=== PATIENT | female | born 1955 | race Caucasian/White ===

== ENCOUNTER 2020-12-31 07:38 | Day surgery (SDC) | payer BC, SELFPAY ==
[2020-12-24 15:19] VITALS: BMI 36.7
[2020-12-31 08:12] VITALS: BP 153/80; PULSE 73; RESP 18; TEMP 36.5; O2SAT 99
--- NOTE | 2020-12-31 08:20 | HO.ANESPROP2 ---
HPI - Anesthesia Eval Consult details Narrative: 65 yo female patient for colonoscopy [facility] Past Medical History Medical History HTN (hypertension) Family History Family history of problems with anesthesia: No Surgical History Surgical History H/O colonoscopy Hx of knee surgery Hx of laminectomy History of Problems with Anesthesia: No Social History Social History Patient Tobacco Use Status: Never used Tobacco Use of substances other than those prescribed or required for medical reasons: No Advance Directives Information Provided: No Meds Allergies Allergy/AdvReac Type Severity Reaction Status Date / Time No Known Allergies Allergy Verified 12/31/20 07:51 Home Medications Medication Instructions Recorded Confirmed Last Taken Type multivitamin 1 tab PO DAILY 12/24/20 12/24/20 Unknown History amlodipine 5 mg-benazepril 20 mg 1 cap PO DAILY 12/31/20 12/31/20 12/31/20 06:45 History capsule Exam Exam Date and Time: December 31, 2020 0820 Height,Weight and Vital Signs: Height 5 ft 5.5 in Weight 101.605 kg Last Vital Signs Temp 97.7 F 12/31/20 08:12 Pulse 73 12/31/20 08:12 Resp 18 12/31/20 08:12 BP 153/80 H 12/31/20 08:12 Pulse Ox 99 12/31/20 08:12 Airway Mallampati Class: II TM Dist: >3cm Neck ROM: Limited (Herniated cervical discs) Heart: RRR Lungs: CTAB. Diminished Assessment and Plan Assessment Anesthesia Assessment: Anesthesia Plan Discussed and Chart Reviewed Final Anesthetic Review Family History of Problems with Anesthesia: No History of Problems with Anesthesia: No NPO: Yes ASA Class: II Final Preanesthetic Review: No Changes in Pt Med Stat, Meds/Allgs Chart Reviewed, Consent Obtained/Reviewed and Anes Risks/Benef Reviewed Patient Risk: Low Procedure Risk: Low Assessment/Block/Sedation in SS: Assess/Block/Sedation-SS Anesthetic Plan Anesthetic Plan: MAC: Disposition: Standard PACU
[2020-12-31] MEDS: Lactated Ringers 1,000 ML 100 ML IVCONT (08:27)
--- NOTE | 2020-12-31 08:29 | MHC.SHP ---
Pre-Procedural Eval Section A Date of Service: 12/31/20 The patient is an INPATIENT: No Changes since office visit: No Cold of Flu in the past 2 weeks, No New Medical Problems, No Changes in Medication and No Patient answered all questions The History & Physical has been completed within 30 days and I have reviewed it.: Yes Section B Chief Complaint: screening Allergies: Allergies Allergy/AdvReac Type Severity Reaction Status Date / Time No Known Allergies Allergy Verified 12/31/20 07:51 Plan I have reviewed the history and physical and performed a pertinent physical examination on my patient. No changes have occurred unless specified.
[2020-12-31 09:11] VITALS: BP 108/52; PULSE 71; RESP 16; TEMP 36.3; O2SAT 99
--- NOTE | 2020-12-31 09:12 | P.BOP_ITS ---
Brief Operative Note Date of Service: 12/31/20 Pre-op diagnosis: screening Post-op diagnosis: same (colitis) Procedure: colonoscopy Surgeon: Wyatt Cruz Anesthesia: MAC Was an Validation Software Facilitator used for this Procedure?: No Estimated blood loss (mL): 5 Pathology: other (biopsies) Condition: stable Disposition: PACU
[2020-12-31 09:27] VITALS: BP 128/76; PULSE 62; RESP 16; TEMP 36.3; O2SAT 99
--- NOTE | 2020-12-31 09:27 | OP_ITS ---
SURGEON: Wyatt Cruz MD INDICATIONS: Colon cancer screening. PREOPERATIVE DIAGNOSIS: POSTOPERATIVE DIAGNOSIS: PROCEDURE PERFORMED: Colonoscopy to the terminal ileum with biopsy. ESTIMATED BLOOD LOSS: COMPLICATIONS: ANESTHESIA: ASSISTANTS: SPECIMENS: MEDICATIONS: Monitored anesthesia care. DESCRIPTION OF PROCEDURE: History and physical performed. The risks and benefits of the procedure were explained to the patient. Informed consent was obtained. The patient was placed in the left lateral decubitus position. A digital rectal exam was performed and was found to be normal. The Olympus pediatric video colonoscope was introduced into the rectum and advanced to the cecum without difficulty. The cecum was identified by transillumination, palpation, and identification of ileocecal valve. Examination was performed and the scope was removed. She tolerated the procedure well and was taken to recovery area in stable condition. FINDINGS: The terminal ileum was examined and appeared normal. Biopsies were obtained from the terminal ileum. There was punctate areas of ulceration suggestive of resolving colitis in the cecum and in the rectosigmoid at about 0 to 40 cm. Biopsies were obtained from the mucosa. Retroflexed examination was normal. There was moderate diverticulosis of the sigmoid. IMPRESSION: Colitis. RECOMMENDATION: Follow up the biopsy results. MD ALTAGRACIA Haynes/SAYDA / [id number]
== END 2020-12-31 09:45 | disposition home or self-care (01) ==
PROVIDERS: PCP Internal Medicine; Visit Provider Internal Medicine Gastroenterology
PROC: 0DJD8ZZ Inspection of Lower Intestinal Tract, Via Natural or Artificial Opening Endoscopic (ICD-10-PCS; CPT 45378; principal; 2020-12-31 08:40)
DX: Z12.11 Encounter for screening for malignant neoplasm of colon (principal); K52.9 Noninfective gastroenteritis and colitis, unspecified; K62.89 Other specified diseases of anus and rectum; K57.30 Diverticulosis of large intestine without perforation or abscess without bleeding; I10 Essential (primary) hypertension
CPT/HCPCS: 45380; 88305

== ENCOUNTER 2021-04-15 10:07 | Outpatient (REF) | payer BC, SELFPAY ==
[2021-04-15 11:25] LABS: MANUAL DIFF FLAG NO
[2021-04-15 11:37] LABS: Basophils Absolute Auto 0.1 X10*3/uL (0.0-0.2); Basophils Percent Auto 0.7 % (0-2); Eosinophils Absolute Auto 0.1 X10*3/uL (0.0-0.4); Eosinophils Percent Auto 0.8 % (0-4); Hematocrit 42.5 % (37.0-47.0); Hemoglobin 14.3 g/dl (12.0-16.0); Imm Gran Abs Auto 0.03 X10*3/uL (0.00-0.03); Imm Gran Pct Auto 0.3 % (0.0-0.4); Lymphocytes Absolute Auto 2.2 X10*3/uL (1.2-4.9); Lymphocytes Percent Auto 24.5 % (20-40); Mean Corpuscular HGB Conc 33.6 g/dl (31.0-35.0); Mean Corpuscular Hemoglobin 31.4 pg (27.0-33.0); Mean Corpuscular Volume 93.2 fL (80.0-98.0); Mean Platelet Volume 11.8 fL (9.4-12.3); Monocytes Absolute Auto 0.8 X10*3/uL (0.1-1.2); Monocytes Percent Auto 8.8 % (2-11); Neutrophils Absolute Auto 5.8 x10*3/uL (2.0-8.3); Neutrophils Percent Auto 64.9 % (45-73); Platelet Count 301 X10*3/uL (160-400); Red Blood Count 4.56 X10*6/uL (4.20-5.50); Red Cell Distribution Width 13.2 % (11.0-16.0); White Blood Count 8.9 X10*3/uL (4.8-10.8)
[2021-04-15 11:59] LABS: Alanine Aminotransferase 19 U/L (0-31); Albumin Level 4.6 g/dL (3.5-5.0); Alkaline Phosphatase 69 U/L (39-117); Aspartate Amino Transferase 22 U/L (5-31); Bilirubin Direct 0.2 mg/dL (0.0-0.5); Bilirubin Total 0.5 mg/dL (0.0-1.0); Blood Urea Nitrogen 14 mg/dL (9-16); Estimated Glomerular Filt Rate > 60; Lipase 19 U/L (8-78); Total Protein 7.8 g/dL (6.5-8.0)
== END 2021-04-15 10:08 | disposition home or self-care (01) ==
LOC: HO.HMGCLDS 10:07
PROVIDERS: PCP Internal Medicine; Visit Provider Internal Medicine Gastroenterology
DX: K52.9 Noninfective gastroenteritis and colitis, unspecified (principal)
CPT/HCPCS: 36415; 80076; 82565; 83690; 84520; 85025

== ENCOUNTER 2021-04-23 11:03 | Outpatient (REF) | payer BC, SELFPAY ==
[2021-04-23 15:16] LABS: Leukocytes Stool Qualitative NEGATIVE (NEGATIVE)
== END 2021-04-23 11:04 | disposition home or self-care (01) ==
LOC: HO.HMGCLNP 11:03
PROVIDERS: Visit Provider Internal Medicine Gastroenterology
DX: K52.9 Noninfective gastroenteritis and colitis, unspecified (principal)
CPT/HCPCS: 87045; 87046; 87177; 87209; 89055

== ENCOUNTER 2021-05-08 09:12 | Outpatient (REF) | payer BC, SELFPAY | END 2021-05-08 09:13 | disposition home or self-care (01) | LOC: HO.HMGCLNP 09:12 | PROVIDERS: Visit Provider Internal Medicine Gastroenterology | DX: R19.7 Diarrhea, unspecified (principal) | CPT/HCPCS: 87177; 87209 ==

== ENCOUNTER 2021-06-02 10:06 | Outpatient (REF) | payer BC, SELFPAY | END 2021-06-02 10:07 | disposition home or self-care (01) | LOC: HO.HMGCLDS 10:06 | PROVIDERS: Visit Provider Internal Medicine Gastroenterology | DX: R19.7 Diarrhea, unspecified (principal) | CPT/HCPCS: 36415; 87177; 87209; 87329 ==

== ENCOUNTER 2021-06-04 09:41 | Outpatient (REF) | payer BC, SELFPAY | END 2021-06-04 09:42 | disposition home or self-care (01) | LOC: HO.HMGCLNP 09:41 | PROVIDERS: Visit Provider Internal Medicine Gastroenterology | DX: R19.7 Diarrhea, unspecified (principal) | CPT/HCPCS: 87177; 87209 ==

== ENCOUNTER 2022-02-20 09:45 | Outpatient (REF) | payer BC, SELFPAY ==
[2022-02-20 13:13] LABS: Leukocytes Stool Qualitative NEGATIVE (NEGATIVE)
[2022-02-20 14:16] LABS: Adenovirus F 40/41 Not Detected (Not Detect.); Astrovirus Not Detected (Not Detect.); Campylobacter Not Detected (Not Detect.); Cryptosporidium Not Detected (Not Detect.); Cyclospora cayetanensis Not Detected (Not Detect.); E. coli EAEC Not Detected (Not Detect.); E. coli EPEC Not Detected (Not Detect.); E. coli ETEC Not Detected (Not Detect.); E. coli STEC Not Detected (Not Detect.); Entamoeba histolytica Not Detected (Not Detect.); Giardia lamblia Not Detected (Not Detect.); Norovirus GI/GII Not Detected (Not Detect.); Plesiomonas shigelloides Not Detected (Not Detect.); Rotavirus A Not Detected (Not Detect.); Salmonella Not Detected (Not Detect.); Sapovirus Not Detected (Not Detect.); Shigella sp./EIEC Not Detected (Not Detect.); Vibrio Not Detected (Not Detect.); Vibrio Cholerae Not Detected (Not Detect.); Yersinia enterocolitica Not Detected (Not Detect.)
[2022-03-01 19:21] LABS: Calprotectin, Fecal 61 mcg/g
== END 2022-02-20 09:46 | disposition home or self-care (01) ==
LOC: HO.HMGCLDS 09:45
PROVIDERS: PCP Internal Medicine; Visit Provider Internal Medicine Gastroenterology
DX: R19.7 Diarrhea, unspecified (principal)
CPT/HCPCS: 83993; 87177; 87209; 87507; 89055

== ENCOUNTER 2022-08-21 09:18 | Outpatient (REF) | payer MEDICARE, SELFPAY ==
[2022-08-21 11:39] LABS: MANUAL DIFF FLAG NO
[2022-08-21 11:56] LABS: Basophils Absolute Auto 0.1 X10*3/uL (0.0-0.2); Basophils Percent Auto 0.8 % (0-2); Eosinophils Absolute Auto 0.1 X10*3/uL (0.0-0.4); Eosinophils Percent Auto 0.5 % (0-4); Hematocrit 42.1 % (37.0-47.0); Imm Gran Abs Auto 0.06 X10*3/uL (0.00-0.03); Imm Gran Pct Auto 0.5 % (0.0-0.4); Lymphocytes Absolute Auto 1.6 X10*3/uL (1.2-4.9); Lymphocytes Percent Auto 12.5 % (20-40); Mean Corpuscular HGB Conc 33.3 g/dl (31.0-35.0); Mean Corpuscular Hemoglobin 31.1 pg (27.0-33.0); Mean Corpuscular Volume 93.6 fL (80.0-98.0); Mean Platelet Volume 12.2 fL (9.4-12.3); Monocytes Percent Auto 7.2 % (2-11); Neutrophils Absolute Auto 10.3 x10*3/uL (2.0-8.3); Neutrophils Percent Auto 78.5 % (45-73); Platelet Count 293 X10*3/uL (160-400); Red Cell Distribution Width 13.3 % (11.0-16.0); White Blood Count 13.2 X10*3/uL (4.8-10.8)
[2022-08-21 12:48] LABS: TSH reflex Free T4 1.17 uIU/mL (0.32-4.0)
[2022-08-21 13:07] LABS: Leukocytes Stool Qualitative NEGATIVE (NEGATIVE)
[2022-08-21 13:16] LABS: CDiff Gene PCR POSITIVE (Negative)
[2022-08-21 14:10] LABS: CDIFF Internal ctrl Dots and bkg OK (V)
[2022-08-21 14:23] LABS: CDiff Toxin Positive (Negative)
[2022-08-21 14:43] LABS: Campylobacter Not Detected (Not Detect.); E. coli EAEC Not Detected (Not Detect.); E. coli EPEC Not Detected (Not Detect.); E. coli ETEC Not Detected (Not Detect.); E. coli STEC Not Detected (Not Detect.); Plesiomonas shigelloides Not Detected (Not Detect.); Salmonella Not Detected (Not Detect.); Vibrio Not Detected (Not Detect.); Vibrio Cholerae Not Detected (Not Detect.); Yersinia enterocolitica Not Detected (Not Detect.)
[2022-08-21 14:44] LABS: Adenovirus F 40/41 Not Detected (Not Detect.); Astrovirus Not Detected (Not Detect.); Cryptosporidium Not Detected (Not Detect.); Cyclospora cayetanensis Not Detected (Not Detect.); Entamoeba histolytica Not Detected (Not Detect.); Giardia lamblia Not Detected (Not Detect.); Norovirus GI/GII Not Detected (Not Detect.); Rotavirus A Not Detected (Not Detect.); Sapovirus Not Detected (Not Detect.); Shigella sp./EIEC Not Detected (Not Detect.)
== END 2022-08-21 09:19 | disposition home or self-care (01) ==
LOC: HO.HMGCLDS 09:18
PROVIDERS: PCP Internal Medicine; Visit Provider Internal Medicine Gastroenterology
DX: K52.9 Noninfective gastroenteritis and colitis, unspecified (principal); R19.7 Diarrhea, unspecified
CPT/HCPCS: 36415; 84443; 85025; 87177; 87209; 87324; 87493; 87507; 89055

== ENCOUNTER 2022-09-16 09:31 | Outpatient (REF) | payer MEDICARE, SELFPAY ==
[2022-09-16 11:59] LABS: Leukocytes Stool Qualitative NEGATIVE (NEGATIVE)
[2022-09-16 12:54] LABS: CDiff Gene PCR NEGATIVE (Negative)
[2022-09-16 15:22] LABS: Campylobacter Not Detected (Not Detect.); E. coli EAEC Not Detected (Not Detect.); Plesiomonas shigelloides Not Detected (Not Detect.); Salmonella Not Detected (Not Detect.); Vibrio Not Detected (Not Detect.); Vibrio Cholerae Not Detected (Not Detect.); Yersinia enterocolitica Not Detected (Not Detect.)
[2022-09-16 15:23] LABS: Adenovirus F 40/41 Not Detected (Not Detect.); Astrovirus Not Detected (Not Detect.); Cryptosporidium Not Detected (Not Detect.); Cyclospora cayetanensis Not Detected (Not Detect.); E. coli EPEC Not Detected (Not Detect.); E. coli ETEC Not Detected (Not Detect.); E. coli STEC Not Detected (Not Detect.); Entamoeba histolytica Not Detected (Not Detect.); Giardia lamblia Not Detected (Not Detect.); Norovirus GI/GII Not Detected (Not Detect.); Rotavirus A Not Detected (Not Detect.); Sapovirus Not Detected (Not Detect.); Shigella sp./EIEC Not Detected (Not Detect.)
[2022-09-23 23:03] LABS: Calprotectin, Fecal 39 mcg/g
== END 2022-09-16 09:32 | disposition home or self-care (01) ==
LOC: HO.HMGCLNP 09:31
PROVIDERS: PCP Internal Medicine; Visit Provider Internal Medicine Gastroenterology
DX: R19.7 Diarrhea, unspecified (principal)
CPT/HCPCS: 83993; 87177; 87209; 87493; 87507; 89055